=== PATIENT | female | born 1965 | race Caucasian/White ===

== ENCOUNTER → 2017-12-03 | Outpatient (CLI) | payer BC | END | disposition home or self-care (01) | LOC: PLD 11:47 → LAB SHORT 11:47 | DX: D22.71 Melanocytic nevi of right lower limb, including hip (principal) | CPT/HCPCS: 88305 ==

== ENCOUNTER → 2019-01-27 | Outpatient (CLI) | payer BC ==
[2019-01-29 14:07] LABS: HPV 16 Negative (Negative); HPV 18 Negative (Negative); HPV OTHER HR TYPES Negative (Negative)
== END | disposition home or self-care (01) ==
LOC: LAB 18:18 → LAB SHORT 18:18
PROVIDERS: Obstetrics & Gynecology
DX: Z01.419 Encounter for gynecological examination (general) (routine) without abnormal findings (principal)
CPT/HCPCS: 87624; G0123

== ENCOUNTER 2019-02-16 07:23 | Day surgery (SDC) | payer BC ==
[~2019-02-16] VITALS: Ht 160 cm; Wt 59.6 kg
[~2019-02-16 07:23] MED LIST: ERGOCALCIFEROL PO
== END 2019-02-16 09:53 | disposition home or self-care (01) ==
LOC: ORSCSDS 07:23
PROVIDERS: Student in an Organized Health Care Education/Training Program
PROC: 0DJD8ZZ Inspection of Lower Intestinal Tract, Via Natural or Artificial Opening Endoscopic (ICD-10-PCS; principal; 2019-02-16 09:00)
DX: Z12.11 Encounter for screening for malignant neoplasm of colon (principal); E78.00 Pure hypercholesterolemia, unspecified
CPT/HCPCS: J2704; J7120

== ENCOUNTER 2021-03-13 23:06 | Emergency (ER) | payer BC ==
[~2021-03-13] VITALS: Ht 160 cm; Wt 59.0 kg
[2021-03-13] MEDS ORDERED: Vibramycin100 MG PO (23:39)
[2021-03-13] MEDS ORDERED: Benadryl25 MG PO (23:39)
== END 2021-03-13 23:48 | disposition home or self-care (01) ==
LOC: ER 23:06
DX: S70.261A Insect bite (nonvenomous), right hip, initial encounter (principal); W57.XXXA Bitten or stung by nonvenomous insect and other nonvenomous arthropods, initial encounter
CPT/HCPCS: 99282; A9270

== ENCOUNTER → 2022-10-22 | Outpatient (CLI) | payer BC ==
[~2022-10-22] MED LIST changes: +Benadryl25 MG PO; +Vibramycin100 MG PO
== END | disposition home or self-care (01) ==
LOC: PLD 13:23 → LAB SHORT 13:23
DX: N95.0 Postmenopausal bleeding (principal)
CPT/HCPCS: 88305

== ENCOUNTER 2022-12-24 10:41 | Day surgery (SDC) | payer BC ==
[~2022-12-24] VITALS: Ht 160 cm; Wt 63.9 kg
--- NOTE | 2022-12-24 13:03 | NUR ---
PRE SURGERY NOTE Ambulatory in Day Surgery History, Chart, Medications and Allergies reviewed before start of procedure.Lungs clear T/O to Auscultation. Patient confirms NPO status and agrees with scheduled surgery. Pre-Op teaching done. Pt verbalizes understanding. Patient States Post-Procedure ride home has been arranged.
--- NOTE | 2022-12-24 14:40 | NUR ---
REPORT RECEIVED FROM BRIDGETT DRAKE RN. VSS. PT DENIES PAIN OR NAUSEA. PT NOTES MILD DISCOMFORT. PT REQUESTING PO FLUIDS AND TOLERATING THEM WELL. PT HAS NO DRESSINGS. PT ABLE TO REPOSITION SELF IN BED.
--- NOTE | 2022-12-24 15:32 | NUR ---
Patient up to Ambulate independently. Gait steady. Discharge instructions reviewed with patient. Patient verbalizes understanding. Copy given to patient to take home. Patient States Post-Procedure ride home has been arranged. Discharged via wheelchair to private car for ride home. PT REPORTED THAT SHE DID NOT WANT TYLENOL HERE AT HOSPITAL. PT VOIDED PRIOR TO DISCHARGE. PT REPORTS READY TO GO HOME.
== END 2022-12-24 15:32 | disposition home or self-care (01) ==
LOC: ORSCMMR 10:41
PROVIDERS: Obstetrics & Gynecology
PROC: 0UB98ZZ Excision of Uterus, Via Natural or Artificial Opening Endoscopic (ICD-10-PCS; principal; 2022-12-24 13:00)
DX: N84.0 Polyp of corpus uteri (principal); N71.1 Chronic inflammatory disease of uterus; N95.0 Postmenopausal bleeding; E78.5 Hyperlipidemia, unspecified
CPT/HCPCS: 88305; J1100; J1885; J2250; J2405; J2704; J3010; J7120